=== PATIENT | female | born 1995 | race Caucasian/White ===

== ENCOUNTER 2024-07-16 01:34 | Inpatient (IN) | payer SELFPAY ==
[2024-07-16 02:04] VITALS: BMI 36.3
[2024-07-16] MEDS: Lactated Ringer's 1,000 ML IV SCH ×2 (02:40→04:38)
[2024-07-16 03:04] LABS: #Basophils 0.03 10x3/uL (0.0-0.2); #Eosinophils 0.15 10x3/uL (0.0-0.5); #Monocytes 0.59 10x3/uL (0.0-1.1); #Neutrophils 8.02 10x3/uL (1.5-8.4); %Basophils 0.3 % (0.0-2.0); %Eosinophils 1.4 % (0.0-6.0); %Monocytes 5.5 % (0.0-10.0); %Neutrophils 75.3 % (40.0-75.0); Hematocrit 34.4 % (34.9-44.5); Mean Corpuscular HGB CONC 34.9 g/dL (32.0-36.0); Mean Corpuscular Hemoglobin 30.2 pg (27.0-33.0); Mean Corpuscular Volume 86.6 fL (81.6-98.3); Mean Platelet Volume 9.7 fL (7.4-10.4); Platelet Count 284 10x3/uL (150-450); Red Blood Cell (RBC) Count 3.97 10x6/uL (3.90-5.03); White Blood Cell (WBC) Count 10.7 10x3/uL (3.5-10.5)
[2024-07-16] MEDS ORDERED: hydrALAZINE 20 MG/ML VIAL SLOW IVP PRN (04:03)
[2024-07-16] MEDS ORDERED: Acetaminophen 500 MG TAB PO PRN (04:03)
[2024-07-16] MEDS ORDERED: fentaNYL 50 mcg/mL 1 mL Vial SLOW IVP PRN (04:03)
[2024-07-16] MEDS ORDERED: Lidocaine 1% (PF) 30 ML VIAL SC PRN (04:03)
[2024-07-16] MEDS ORDERED: Promethazine HCl 25 MG/ML VIAL IM PRN (04:03)
[2024-07-16] MEDS ORDERED: Ondansetron PF 4 MG/2 ML Vial IVP PRN (04:03)
[2024-07-16] MEDS ORDERED: Oxytocin 30 units/NS 500 ML 500 ML IV SCH (04:15)
[2024-07-16] MEDS ORDERED: Famotidine/PF 20 mg/2ml Vial SLOW IVP PRN (04:27)
[2024-07-16] MEDS: Calcium Carbonate 500 MG ChewTAB PO PRN (04:39)
[2024-07-16] MEDS: Penicillin G Potassium 5 MILL.UNITS in Sodium Chloride 0.9% 100 ML IVPB SCH (04:39)
[2024-07-16 04:41] LABS: ALT (SGPT) 8 U/L (8-55); AST (SGOT) 18 U/L (5-34); Albumin 2.9 g/dL (3.5-5.0); Alkaline Phosphatase 104 U/L (40-110); Anion Gap 17 mmol/L (10-20); BUN (Urea Nitrogen) 9 mg/dL (7.0-18.7); Bilirubin, Total 0.3 mg/dL (0.2-1.2); Calc. Creatinine Clearance 194 mL/min (70-130); Calcium 9.4 mg/dL (7.8-10.44); Carbon Dioxide 20 mmol/L (22-29); Chloride 105 mmol/L (98-107); Estimated GFR 122; Globulin 3.5 g/dL (2.4-3.5); Glucose 100 mg/dL (70-105); Potassium 3.5 mmol/L (3.5-5.1); Protein, Total 6.4 g/dL (6.0-8.3); Sodium 138 mmol/L (136-145)
[2024-07-16 04:57] LABS: Syphilis Antibody Nonreactive (Nonreactive); Syphilis Antibody Index 0.06 S/CO (<1.00 Non-Reactive)
[2024-07-16 04:58] LABS: HBsAg Index 0.18 S/CO (0-0.99); Hep B Surf Ag - L&D Non-Reactive S/CO (NonReactive)
[2024-07-16 05:53] LABS: Creatinine, Urine 158.41 mg/dL (47-110)
[2024-07-16] MEDS: Penicillin G 2.5 MILL.units 2.5 MILL.UNITS in Premix 1 BAG IVPB SCH (08:44)
== END 2024-07-17 08:25 | disposition home or self-care (01) | DRG 833 ==
LOC: CSHLD/OP 01:34 → CSHLD 04:07
PROVIDERS: ADMIT Student in an Organized Health Care Education/Training Program; ATTEND Student in an Organized Health Care Education/Training Program
DX: O36.8130 Decreased fetal movements, third trimester, not applicable or unspecified (principal); Z3A.35 35 weeks gestation of pregnancy; O99.613 Diseases of the digestive system complicating pregnancy, third trimester; K21.9 Gastro-esophageal reflux disease without esophagitis; O36.8330 Maternal care for abnormalities of the fetal heart rate or rhythm, third trimester, not applicable or unspecified
CPT/HCPCS: 36415; 76815; 76819; 80053; 82570; 84156; 85025; 85460; 86780; 86850; 86900; 86901; 87340; J2540; J7120

== ENCOUNTER 2024-07-20 12:41 | Day surgery (SDC) | payer SELFPAY ==
[2024-07-20] MEDS ORDERED: hydrALAZINE 20 MG/ML VIAL SLOW IVP PRN (13:12)
[2024-07-20 13:14] VITALS: BMI 36.3
[2024-07-20 13:28] LABS: Fetal Membranes Rupture No Membranes Rupture (No Rupture)
[2024-07-20 14:09] LABS: ALT (SGPT) 11 U/L (8-55); AST (SGOT) 18 U/L (5-34); Albumin 2.6 g/dL (3.5-5.0); Alkaline Phosphatase 103 U/L (40-110); Anion Gap 13 mmol/L (10-20); BUN (Urea Nitrogen) 6 mg/dL (7.0-18.7); Bilirubin, Total 0.2 mg/dL (0.2-1.2); Calc. Creatinine Clearance 200 mL/min (70-130); Calcium 8.3 mg/dL (7.8-10.44); Carbon Dioxide 18 mmol/L (22-29); Chloride 108 mmol/L (98-107); Estimated GFR 123; Globulin 3.8 g/dL (2.4-3.5); Glucose 118 mg/dL (70-105); Potassium 3.4 mmol/L (3.5-5.1); Protein, Total 6.4 g/dL (6.0-8.3); Sodium 136 mmol/L (136-145)
[2024-07-20 14:12] LABS: #Basophils 0.02 10x3/uL (0.0-0.2); #Eosinophils 0.19 10x3/uL (0.0-0.5); #Monocytes 0.46 10x3/uL (0.0-1.1); #Neutrophils 6.51 10x3/uL (1.5-8.4); %Basophils 0.3 % (0.0-2.0); %Eosinophils 2.4 % (0.0-6.0); %Lymphocytes 7.7 % (18.0-47.0); %Monocytes 5.9 % (0.0-10.0); %Neutrophils 83.3 % (40.0-75.0); Hematocrit 34.1 % (34.9-44.5); Hemoglobin 11.2 g/dL (12.0-15.5); Mean Corpuscular HGB CONC 32.8 g/dL (32.0-36.0); Mean Corpuscular Volume 88.3 fL (81.6-98.3); Mean Platelet Volume 9.8 fL (7.4-10.4); Platelet Count 221 10x3/uL (150-450); RBC Distribution Width 12.4 % (11.5-14.5); Red Blood Cell (RBC) Count 3.86 10x6/uL (3.90-5.03); White Blood Cell (WBC) Count 7.8 10x3/uL (3.5-10.5)
[2024-07-20] MEDS ORDERED: Lactated Ringer's 1,000 ML IV SCH (14:15)
[2024-07-20] MEDS: Acetaminophen 500 MG TAB PO SCH (14:25)
[2024-07-20 14:39] LABS: Bilirubin Neg (Negative); Blood, Urine 10 (Negative); Clarity Clear (Clear); Glucose, Urine (Dipstick) >=1000 mg/dL (Negative); Ketone, Urine 5 mg/dL (Negative); Leukocyte Negative (Negative); Nitrite Negative (Negative); Protein, Urine (Dipstick) 30 mg/dl (Neg-Trace); Specific Gravity, Urine 1.025 (1.005-1.030); Urobilinogen Normal mg/dL (Less than 2)
[2024-07-20 14:50] LABS: CAUTI Indications for Culture Pregnancy; RBC/HPF 0-3 HPF (0-3)
[2024-07-20 14:51] LABS: Transitional Epithelial 0-3 HPF (None Seen)
[2024-07-20 14:52] LABS: Bacteria/HPF 2+ HPF (None Seen); Yeast-Budding Rare HPF (None Seen); Yeast-Hyphae 1+ HPF (None Seen)
[2024-07-20 14:53] LABS: Mucous/LPF 3+ LPF (<2+)
[2024-07-20 14:54] LABS: Urine Culture Reflex Yes Yes
[2024-07-20] MEDS: Fluconazole 100 MG TAB PO SCH (16:20)
[2024-07-21 15:37] LABS: Group B Streptococcus by PCR Not Detected (NotDetected)
== END 2024-07-20 19:18 | disposition home health service, planned readmission (86) ==
LOC: CSHLD/OP 12:41
PROVIDERS: ATTEND Student in an Organized Health Care Education/Training Program
DX: O23.593 Infection of other part of genital tract in pregnancy, third trimester (principal); B37.31 Acute candidiasis of vulva and vagina; Z03.71 Encounter for suspected problem with amniotic cavity and membrane ruled out; O99.891 Other specified diseases and conditions complicating pregnancy; R51.9 Headache, unspecified; O99.343 Other mental disorders complicating pregnancy, third trimester; F32.A Depression, unspecified; O24.419 Gestational diabetes mellitus in pregnancy, unspecified control; O98.513 Other viral diseases complicating pregnancy, third trimester; B06.9 Rubella without complication; Z3A.36 36 weeks gestation of pregnancy; Z79.82 Long term (current) use of aspirin; Z79.899 Other long term (current) drug therapy
CPT/HCPCS: 36415; 36416; 76819; 80053; 81001; 82570; 84112; 84156; 85025; 87086; 87480; 87510; 87653; 87660; 96360; 99285

== ENCOUNTER 2024-08-08 09:37 | Day surgery (SDC) | payer SELFPAY ==
[2024-08-08 10:02] VITALS: BMI 35.2
[2024-08-08] MEDS ORDERED: hydrALAZINE 20 MG/ML VIAL SLOW IVP PRN (10:59)
== END 2024-08-08 10:34 | disposition home health service, planned readmission (86) ==
LOC: CSHLD/OP 09:37
PROVIDERS: ATTEND Student in an Organized Health Care Education/Training Program
DX: O47.1 False labor at or after 37 completed weeks of gestation (principal); Z79.82 Long term (current) use of aspirin; Z79.899 Other long term (current) drug therapy; Z67.40 Type O blood, Rh positive; Z3A.39 39 weeks gestation of pregnancy
CPT/HCPCS: 87480; 87510; 87660; 99282

== ENCOUNTER 2024-08-09 05:29 | Inpatient (IN) | payer SELFPAY ==
[2024-08-09 06:18] VITALS: BMI 36.6
[2024-08-09] MEDS ORDERED: HYDROcodone/Acetaminophen 5/325 mg Tablet PO PRN (07:11)
[2024-08-09] MEDS ORDERED: Carboprost 250 MCG/ML AMP IM PRN (07:11)
[2024-08-09] MEDS ORDERED: Misoprostol 200 MCG TAB PR PRN (07:11)
[2024-08-09] MEDS ORDERED: Acetaminophen 500 MG TAB PO PRN (07:11)
[2024-08-09] MEDS ORDERED: hydrALAZINE 20 MG/ML VIAL SLOW IVP PRN ×2 (07:11→15:04)
[2024-08-09] MEDS ORDERED: Promethazine HCl 25 MG/ML VIAL IM PRN ×3 (07:11→15:04)
[2024-08-09] MEDS ORDERED: fentaNYL 50 mcg/mL 1 mL Vial SLOW IVP PRN (07:11)
[2024-08-09] MEDS ORDERED: Methylergonovine 0.2 MG/ML VIAL IM PRN (07:11)
[2024-08-09] MEDS ORDERED: Diphenoxylate HCl/Atropine Tablet PO PRN (07:11)
[2024-08-09] MEDS ORDERED: Ondansetron PF 4 MG/2 ML Vial IVP PRN ×3 (07:11→15:04)
[2024-08-09] MEDS ORDERED: Lidocaine 1% (PF) 30 ML VIAL SC PRN (07:11)
[2024-08-09] MEDS ORDERED: Ibuprofen 800 MG TAB PO PRN (07:11)
[2024-08-09] MEDS ORDERED: Lactated Ringer's 1,000 ML IV SCH (07:15)
[2024-08-09] MEDS ORDERED: Oxytocin 30 units/NS 500 ML 500 ML IV SCH ×2 (07:15)
[2024-08-09 07:25] LABS: Hematocrit 34.6 % (34.9-44.5); Hemoglobin 11.7 g/dL (12.0-15.5); Mean Corpuscular HGB CONC 33.8 g/dL (32.0-36.0); Mean Corpuscular Hemoglobin 29.5 pg (27.0-33.0); Mean Corpuscular Volume 87.2 fL (81.6-98.3); Mean Platelet Volume 10.6 fL (7.4-10.4); Platelet Count 254 10x3/uL (150-450); RBC Distribution Width 12.3 % (11.5-14.5); Red Blood Cell (RBC) Count 3.97 10x6/uL (3.90-5.03); White Blood Cell (WBC) Count 10.36 10x3/uL (3.5-10.5)
[2024-08-09 07:59] LABS: HBsAg Index 0.27 S/CO (0-0.99); Hep B Surf Ag - L&D Non-Reactive S/CO (NonReactive)
[2024-08-09 08:00] LABS: Syphilis Antibody Nonreactive (Nonreactive); Syphilis Antibody Index 0.06 S/CO (<1.00 Non-Reactive)
[2024-08-09] MEDS: fentaNYL/Ropivacaine Epidural 100 ML ONE (09:37)
[2024-08-09] MEDS ORDERED: Moisturizing Cream (Eucerin) 113 GM JAR TOP PRN (10:05)
[2024-08-09] MEDS ORDERED: Acetaminophen 325 MG TAB PO PRN (10:05)
[2024-08-09] MEDS ORDERED: ePHEDrine Sulfate 50 MG/10 ML VIAL SLOW IVP PRN (10:05)
[2024-08-09] MEDS ORDERED: Lactated Ringer's 500 ML IV PRN (10:05)
[2024-08-09] MEDS ORDERED: diphenhydrAMINE 50 MG/ML VIAL IVP PRN (10:05)
[2024-08-09] MEDS ORDERED: Naloxone HCl 0.4 mg/ml Vial IVP PRN ×2 (10:05)
[2024-08-09] MEDS ORDERED: fentaNYL 2 mcg/Ropivacaine 0.2% Epidural 100 ML CADD EPIDURAL SCH (10:15)
[2024-08-09] MEDS ORDERED: Communication Order-Pharmacy FS SCH (10:15)
[2024-08-09] MEDS ORDERED: diphenhydrAMINE 25 MG CAP PO PRN (15:04)
[2024-08-09] MEDS ORDERED: Lanolin Ointment 7 GM TUBE TOP PRN (15:04)
[2024-08-09] MEDS ORDERED: Bisacodyl 10 MG SUPP PR PRN (15:04)
[2024-08-09] MEDS ORDERED: Preparation H Ointment 28 GM TUBE PR PRN (15:04)
[2024-08-09] MEDS ORDERED: Milk Of Magnesia 30 ML UDCUP PO PRN (15:04)
[2024-08-09] MEDS: Oxytocin 30 units/NS 500 ML 500 ML ONE (16:09)
[2024-08-09] MEDS: Dexmedetomidine 200 MCG/2 ML VIAL ONE (16:10)
[2024-08-09] MEDS: Ferrous Sulfate 325 MG TAB PO SCH (16:10)
[2024-08-09] MEDS: Ibuprofen 800 MG TAB PO SCH (16:21)
[2024-08-09] MEDS: Benzocaine-Menthol 82.5 ML CAN TOP PRN (16:24)
[2024-08-09] MEDS ORDERED: Boostrix 0.5 ML (Tdap) VIAL (>/=7 yrs of age) IM ONE (17:00)
[2024-08-09] MEDS: HYDROcodone/Acetaminophen 5/325 mg Tablet PO PRN (21:45)
[2024-08-09] MEDS: Docusate 100 MG CAP PO SCH (21:45)
[2024-08-10] MEDS: Prenatal Vitamin 1 TAB PO SCH (08:19)
[2024-08-11 08:24] VITALS: BP 119/69; TEMP 98.3
== END 2024-08-11 14:20 | disposition home or self-care (01) | DRG 807 ==
LOC: CSHLD 05:29 → CSHPED 15:14
PROVIDERS: ADMIT Student in an Organized Health Care Education/Training Program; ATTEND Student in an Organized Health Care Education/Training Program
PROC: 10E0XZZ Delivery of Products of Conception, External Approach (ICD-10-PCS; principal; 2024-08-09)
PROC: 0HQ9XZZ Repair Perineum Skin, External Approach (ICD-10-PCS; 2024-08-09)
PROC: 10907ZC Drainage of Amniotic Fluid, Therapeutic from Products of Conception, Via Natural or Artificial Opening (ICD-10-PCS; 2024-08-09)
DX: O70.0 First degree perineal laceration during delivery (principal); Z37.0 Single live birth; Z3A.39 39 weeks gestation of pregnancy
CPT/HCPCS: 51702; 85027; 86780; 86850; 86900; 86901; 87340

== ENCOUNTER 2024-08-13 04:37 | Inpatient (IN) | payer SELFPAY ==
[2024-08-13] MEDS ORDERED: HYDROmorphone 0.5 MG/0.5 ML SYRINGE ONE (05:44)
[2024-08-13] MEDS ORDERED: Ondansetron ODT 4 MG TAB PO PRN (06:41)
[2024-08-13] MEDS ORDERED: Gentamicin Sulfate 100 MG in Premix 1 BAG IVPB SCH (09:00)
[2024-08-13] MEDS: Acetaminophen/Codeine 30-300mg Tablet PO PRN ×2 (09:20→21:03)
[2024-08-13] MEDS: Gentamicin Sulfate 100 MG in Premix 1 BAG IVPB SCH (09:21)
[2024-08-13 09:31] VITALS: BMI 35.2
[2024-08-13] MEDS: Famotidine 20 MG TAB PO SCH (09:36)
[2024-08-13] MEDS: Clindamycin/D5W 900 MG in Premix 1 BAG IVPB SCH ×2 (10:58→20:30)
[2024-08-13] MEDS: Ibuprofen 200 MG TAB PO SCH (12:29)
[2024-08-13] MEDS: Ampicillin 2 GM in Sodium Chloride 0.9% 100 ML IVPB SCH (12:29)
[2024-08-13] MEDS: ADMIXTURE FEE IVPB SCH (17:04)
[2024-08-13] MEDS: SODIUM CHLORIDE IVPB SCH (17:04)
[2024-08-13] MEDS: GENTAMICIN SULFATE IVPB SCH (17:04)
[2024-08-13] MEDS: Docusate 100 MG CAP PO SCH (20:15)
[2024-08-13] MEDS: Acetaminophen 325 MG TAB PO PRN (20:15)
[2024-08-14 05:33] LABS: #Basophils 0.04 10x3/uL (0.0-0.2); #Eosinophils 0.06 10x3/uL (0.0-0.5); #Monocytes 0.41 10x3/uL (0.0-1.1); #Neutrophils 11.39 10x3/uL (1.5-8.4); %Basophils 0.3 % (0.0-2.0); %Eosinophils 0.5 % (0.0-6.0); %Lymphocytes 3.4 % (18.0-47.0); %Monocytes 3.3 % (0.0-10.0); %Neutrophils 91.1 % (40.0-75.0); Hemoglobin 10.1 g/dL (12.0-15.5); Mean Corpuscular HGB CONC 33.7 g/dL (32.0-36.0); Mean Corpuscular Hemoglobin 30.4 pg (27.0-33.0); Mean Corpuscular Volume 90.4 fL (81.6-98.3); Mean Platelet Volume 9.5 fL (7.4-10.4); Platelet Count 199 10x3/uL (150-450); RBC Distribution Width 12.9 % (11.5-14.5); Red Blood Cell (RBC) Count 3.32 10x6/uL (3.90-5.03)
[2024-08-14] MEDS: Fluconazole 100 MG TAB PO SCH (08:52)
[2024-08-14] MEDS ORDERED: FLU (Fluarix Triv) TS24-25(6MOS UP)/PF 45 MCG/0.5 ML Syringe IM ONE (09:00)
[2024-08-14] MEDS: Prenatal Vitamin 1 TAB PO SCH (12:13)
[2024-08-14] MEDS: HYDROcodone/Acetaminophen 5/325 mg Tablet PO PRN (20:13)
[2024-08-15] MEDS: Ampicillin 2 GM in Sodium Chloride 0.9% 100 ML IVPB SCH (02:19)
[2024-08-15] MEDS: Prenatal Vitamin 1 TAB PO SCH (08:39)
[2024-08-15] MEDS: HYDROcodone/Acetaminophen 5/325 mg Tablet PO PRN (12:12)
[2024-08-15] MEDS: Amoxicillin/Potassium Clav 875 MG TAB PO SCH (21:14)
[2024-08-16 05:25] VITALS: TEMP 98.2
[2024-08-16 11:27] VITALS: BP 121/74
== END 2024-08-16 14:30 | disposition home or self-care (01) | DRG 776 ==
LOC: CSHERS 04:37 → CSHPED 08:03
PROVIDERS: ADMIT Obstetrics & Gynecology; ATTEND Obstetrics & Gynecology
DX: O86.12 Endometritis following delivery (principal); Z79.899 Other long term (current) drug therapy
CPT/HCPCS: 76856; 85025; 93976; 96374; J0290; J1171; J1580; J3490